=== PATIENT | male | born 1965 | race Caucasian/White ===

== ENCOUNTER → 2021-04-29 | Day surgery (SDC) | payer OTHER ==
[~2021-04-29] MED LIST: NORCO5 PO; SUPER THERAVIT1 EACH PO
--- NOTE | ~2021-04-29 | OP ---
[facility] [address] [place] [address] OPERATIVE REPORT Name: ANGIE VALENCIA Room: [facility]#: [id number] Admission: 04/29/21 Attend Phys: Jonas Solis Discharge: Date of : 65 Report #: [id number] THIS REPORT FOR: cc: NO FAMILY PHYSICIAN or PCP NO FAMILY PHYSICIAN or PCP Jonas Solis MD ~ DOC #: [id number] Jonas Solis MD DATE OF SURGERY: 04/29/2021 PREOPERATIVE DIAGNOSES: 1. Right inguinal hernia. 2. Incarcerated ventral hernia. POSTOPERATIVE DIAGNOSES: 1. Right inguinal hernia. 2. Incarcerated ventral hernia. OPERATION: 1. Laparoscopic repair of incarcerated right inguinal hernia. 2. Laparoscopic repair of incarcerated ventral hernia with mesh. SURGEON: Jonas Solis MD. ANESTHESIA: General. ESTIMATED BLOOD LOSS: Minimal. SPECIMEN: None. DESCRIPTION OF PROCEDURE: After informed consent was obtained, the patient was brought to the operating room and placed supine. SCDs were placed and working, preoperative antibiotics were administered, general anesthesia was induced. The abdomen was prepped and draped in the usual sterile fashion after a Fry catheter was placed. A 5 mm incision was made in the left upper quadrant. A 5 mm trocar was placed under direct vision. Pneumoperitoneum was established. Left-sided 5 mm trocar was placed as well as a right-sided 5 mm trocar. A midline 10 mm trocar was placed through the umbilical hernia defect. Attention was then directed to the right groin. The patient was placed in the slight Trendelenburg position. I then incised the peritoneum at the right ASIS. The peritoneum was then scored to the medial umbilical ligament. He had a very large hernia sac, which took some time to reduce. I was able to reduce it fully, however. The cord structures were protected. [place] [address] OPERATIVE REPORT Name: ANGIE VALENCIA Yady Room: [facility]#: [id number] Admission: 04/29/21 Attend Phys: Jonas Solis Discharge: Date of : 65 Report #: [id number] protected. I was able to identify the pubic bone. An extra-large Bard 3DMax mesh was inserted. It was tacked to Guru's ligament with 2 absorbable tacks. I then reapproximated the peritoneum over the mesh with a tacker. There was 100% coverage of the mesh. Attention was then directed to the midline. An 11 cm Bard Ventralight mesh was inserted through the 10 mm trocar. A 10 mm trocar was removed. I brought the Ventralight mesh up to the abdominal wall and tacked it with approximately 40 absorbable tacks covering the defect widely. The defect measured approximately 3 cm. There was good wide overlap on all sides. The ports were then removed under direct vision. The skin was closed with 4-0 Monocryl. Incisions were dressed with Steri-Strips. Also, of note, I did insert a Bard 3DMax midway mesh into the space prior to placing the 3DMax extra-large. The midway large was too small and therefore it was removed and it was not left in the abdomen. The patient has a Bard 3DMax extra-large mesh implanted. There was no midway large mesh implanted. COMPLICATIONS: None. DISPOSITION: The patient was taken to recovery in satisfactory condition. Jonas Solis MD JDP/NIS By: [id number] Solis MD /nt
[2021-04-29 10:28] LABS: HEMATOCRIT 49.6 % (42.0-52.0); HEMOGLOBIN 16.9 gm/dL (14.0-18.0); MCH 32.2 pg (26.0-34.0); MCV 94.6 fL (80.0-100.0); MPV 7.9 fl. (7.2-11.1); RBC 5.24 mil/uL (4.50-6.00); RDW-CV 13.1 % (10.5-14.5); WBC 21.2 thou/uL (4.0-11.0)
[2021-04-29 10:34] LABS: CALCIUM 8.6 mg/dL (8.5-10.1); CREATININE 0.8 mg/dL (0.6-1.3); POTASSIUM 4.3 mmol/L (3.5-5.1)
--- NOTE | 2021-04-29 16:46 | EKG ---
[place] [address] ELECTROCARDIOGRAM REPORT Name: CHERYLFRANCANGIE Yady Room: [facility]#: [id number] Admission: 04/29/21 Attend Phys: Jonas Conde Discharge: Date of : 65 Date of Service: 04/29/21 1025 Report #: [id number] THIS REPORT FOR: //name// [facility] Test Date: 2021-04-29 Test Time: 10:25:26 Pat Name: ANGIE VALENCIA Department: Room: Gender: [employer]: : 1965 Requested By: Jonas Solis Order Number: [id number] ySmone MD: Rickie Hooper Measurements Intervals [place] Rate: 68 P: 31 KS: 160 QRS: -64 QRSD: 85 T: 50 QT: 432 QTc: 460 Interpretive Statements Sinus rhythm Left anterior fascicular block Anteroseptal infarct, old No previous ECG available for comparison Electronically Signed On 04-29-2021 16:46:05 CDT by Rickie Hooper [email or web address] <ELECTRONICALLY SIGNED> By: Rickie Hooper MD, [facility] 04/29/21 1646 1025 1025 Rickie Hooper MD, [facility] /EPI
== END | disposition home or self-care (01) ==
LOC: M.SUR 07:59
PROVIDERS: ATTEND Surgery
DX: K40.90 Unilateral inguinal hernia, without obstruction or gangrene, not specified as recurrent (principal); K43.6 Other and unspecified ventral hernia with obstruction, without gangrene; R10.9 Unspecified abdominal pain; Z98.890 Other specified postprocedural states; Z79.899 Other long term (current) drug therapy; Z20.822 Contact with and (suspected) exposure to COVID-19; Z79.891 Long term (current) use of opiate analgesic